=== PATIENT | male | born 1985 | race African-American/Black ===

== ENCOUNTER 2023-07-25 13:12 | Emergency (ER) | payer OTHER ==
[~2023-07-25] VITALS: Ht 172.7 cm; Wt 83.9 kg
[2023-07-25 13:13] VITALS: TEMP 98.6
[2023-07-25] MEDS ORDERED: ASPIRIN 81MG CHEW TABLET PO ONE (13:45)
[2023-07-25] MEDS: NITROGLYCERIN 0.4MG SUBL TABLET SL PRN ×3 (13:55→14:16)
[2023-07-25 14:05] LABS: BASO % 0.5 % (0.0-1.0); EOS # 0.1 10^3/uL (0.0-0.5); EOS % 1.2 % (0.0-3.0); HEMATOCRIT 38.3 % (42.0-52.0); HEMOGLOBIN 13.5 g/dl (13.5-17.5); LYMPH # 2.5 10^3/uL (1.5-5.0); LYMPH % 58.4 % (24.0-44.0); MEAN CORPUSCULAR HGB CONC 35.2 g/dl (32.0-36.5); MEAN CORPUSCULAR VOLUME 87.8 fl (80.0-96.0); MONO # 0.4 10^3/uL (0.0-0.8); NEUTROPHILS # 1.3 10^3/uL (1.5-8.5); NEUTROPHILS % 30.7 % (36.0-66.0); PLATELET COUNT, AUTOMATED 150 10^3/uL (150-450); RED BLOOD COUNT 4.36 10^6/uL (4.30-6.10); WHITE BLOOD COUNT 4.2 10^3/uL (4.0-10.0)
[2023-07-25 14:15] LABS: INR 1.14; PROTHROMBIN TIME 14.3 SECONDS (12.5-14.5)
[2023-07-25 14:16] VITALS: BP 104/51
[2023-07-25 14:16] LABS: PARTIAL THROMBOPLASTIN TIME 26.4 SECONDS (24.8-34.2)
[2023-07-25 14:26] LABS: CK-MB VALUE MASS 1.2 NG/ML (<3.6)
[2023-07-25 14:28] LABS: ALBUMIN 4.1 G/DL (3.2-5.2); ALKALINE PHOSPHATASE 41 U/L (46-116); ALT/SGPT 17 U/L (7.0-40); AST/SGOT 12 U/L (<34); BILIRUBIN,DIRECT 0.4 MG/DL (<0.4); BLOOD UREA NITROGEN 11 MG/DL (9-23); CARBON DIOXIDE LEVEL 30 MMOL/L (20-31); CHLORIDE LEVEL 105 MMOL/L (98-107); CPK CREATINE PHOSPHOKINASE 222 U/L (46-171); CREATININE FOR GFR 1.02 MG/DL (0.70-1.30); GLOMERULAR FILTRATION RATE > 60.0 (>60); GLUCOSE, FASTING 84 MG/DL (60-100); MB/CK RELATIVE INDEX 0.54 (< OR =4); SODIUM LEVEL 141 MMOL/L (136-145); TOTAL PROTEIN 7.1 G/DL (5.7-8.2)
[2023-07-25 14:30] LABS: FREE T4 0.98 NG/DL (0.89-1.76)
[2023-07-25 14:31] LABS: THYROID STIMULATING HORMONE 1.458 uIU/ML (0.55-4.78)
[2023-07-25] MEDS ORDERED: ISOVUE-370 76% 100ML VIAL As Ordered ONE (14:36)
[2023-07-25 15:15] VITALS: O2SAT 100
[2023-07-25 15:29] LABS: CK-MB VALUE MASS < 1.0 NG/ML (<3.6)
[2023-07-25 15:31] LABS: CPK CREATINE PHOSPHOKINASE 192 U/L (46-171); MB/CK RELATIVE INDEX 0.52 (< OR =4)
[2023-07-25 16:09] VITALS: BP 105/57
== END 2023-07-25 16:26 | disposition home or self-care (01) ==
LOC: M ED 13:12
DX: R07.9 Chest pain, unspecified (principal); R94.31 Abnormal electrocardiogram [ECG] [EKG]; R00.1 Bradycardia, unspecified
CPT/HCPCS: 36415; 71046; 71275; 80048; 80076; 82550; 82553; 84439; 84443; 84484; 85025; 85610; 85730; 93005; 93041; 94760; 99285; Q9967

== ENCOUNTER 2023-10-03 07:08 | Emergency (ER) | payer OTHER ==
[~2023-10-03] VITALS: Ht 167.6 cm; Wt 82.4 kg
[2023-10-03] MEDS ORDERED: PROPARACAINE 0.5% OPHTH SOL 15ML OD ONE (07:50)
[2023-10-03] MEDS ORDERED: FLUORESCEIN OPHTH 1MG STRIP OD ONE (07:50)
[2023-10-03] MEDS ORDERED: POLYSOL OD (08:24)
[2023-10-03] MEDS ORDERED: POLYTRIM OPTH DROPS 10ML OD ONE (08:25)
[2023-10-03 08:33] VITALS: BP 110/61; TEMP 98.2; O2SAT 99
== END 2023-10-03 08:56 | disposition home or self-care (01) ==
LOC: M ED 07:08
DX: H10.31 Unspecified acute conjunctivitis, right eye (principal); Z79.2 Long term (current) use of antibiotics

== ENCOUNTER 2025-02-10 17:08 | Emergency (ER) | payer OTHER ==
[~2025-02-10] VITALS: Ht 172.7 cm; Wt 84.2 kg
[~2025-02-10 17:08] MED LIST: POLYSOL OD
[2025-02-10 17:47] LABS: BASO % 0.4 % (0.0-1.0); EOS # 0.1 10^3/uL (0.0-0.5); EOS % 1.6 % (0.0-3.0); HEMATOCRIT 41.3 % (42.0-52.0); HEMOGLOBIN 14.7 g/dl (13.5-17.5); MEAN CORPUSCULAR HEMOGLOBIN 31.1 pg (27.0-33.0); MEAN CORPUSCULAR HGB CONC 35.6 g/dl (32.0-36.5); MEAN CORPUSCULAR VOLUME 87.3 fl (80.0-96.0); MONO # 0.3 10^3/uL (0.0-0.8); MONO % 6.6 % (2.0-8.0); NEUTROPHILS # 1.6 10^3/uL (1.5-8.5); NEUTROPHILS % 32.2 % (36.0-66.0); PLATELET COUNT, AUTOMATED 187 10^3/uL (150-450); RED BLOOD COUNT 4.73 10^6/uL (4.30-6.10)
[2025-02-10 18:12] LABS: LIPASE 50 U/L (12-53)
[2025-02-10 18:17] LABS: CK-MB VALUE MASS 1.6 NG/ML (<3.6)
[2025-02-10 18:21] LABS: FREE T4 1.11 NG/DL (0.89-1.76); THYROID STIMULATING HORMONE 2.079 uIU/ML (0.55-4.78)
[2025-02-10 18:31] LABS: ALBUMIN 4.2 G/DL (3.2-5.2); ALKALINE PHOSPHATASE 50 U/L (40-129); ALT/SGPT 33 U/L (7.0-40); AST/SGOT 58 U/L (<34); BILIRUBIN,DIRECT < 0.1 MG/DL (<0.4); BILIRUBIN,TOTAL 0.5 MG/DL (0.3-1.2); BLOOD UREA NITROGEN 10 MG/DL (9-23); CALCIUM LEVEL 9.4 MG/DL (8.5-10.1); CARBON DIOXIDE LEVEL 29 MMOL/L (20-31); CHLORIDE LEVEL 102 MMOL/L (98-107); CPK CREATINE PHOSPHOKINASE 1505 U/L (46-171); CREATININE FOR GFR 0.94 MG/DL (0.70-1.30); GLOMERULAR FILTRATION RATE > 60.0 (>60); GLUCOSE, FASTING 93 MG/DL (60-100); POTASSIUM SERUM 4.1 MMOL/L (3.5-5.1); SODIUM LEVEL 142 MMOL/L (136-145); TOTAL PROTEIN 7.7 G/DL (5.7-8.2)
[2025-02-10 21:48] VITALS: BP 118/69; TEMP 97.9; O2SAT 98
[2025-02-10 22:28] LABS: CK-MB VALUE MASS 1.7 NG/ML (<3.6); MB/CK RELATIVE INDEX 0.13 (< OR =4)
== END 2025-02-11 01:41 | disposition left against medical advice (07) ==
LOC: M ED 17:08
DX: Z53.21 Procedure and treatment not carried out due to patient leaving prior to being seen by health care provider (principal)